=== PATIENT | female | born 1945 | race Caucasian/White ===

== ENCOUNTER 2020-10-09 10:38 | Outpatient (REF) | payer MEDICARE, SELFPAY ==
[2020-10-09 14:30] LABS: Anion Gap 13 (12-20); Blood Urea Nitrogen 19 mg/dL (9-16); Calcium 9.6 mg/dL (8.4-10.2); Carbon Dioxide 28 mmol/L (22-29); Chloride 102 mmol/L (96-108); Estimated Glomerular Filt Rate > 60; Glucose Random 84 mg/dL (60-115); Potassium 5.2 mmol/L (3.3-5.1); Sodium 138 mmol/L (135-145)
== END 2020-10-09 10:39 | disposition home or self-care (01) ==
LOC: HO.10HDL 10:38
PROVIDERS: Visit Provider Internal Medicine
DX: I10 Essential (primary) hypertension (principal); J31.0 Chronic rhinitis
CPT/HCPCS: 36415; 80048

== ENCOUNTER 2021-05-22 10:07 | Outpatient (REF) | payer MEDICARE, SELFPAY ==
[2021-05-22 13:54] LABS: MANUAL DIFF FLAG NO
[2021-05-22 14:05] LABS: Basophils Absolute Auto 0.1 X10*3/uL (0.0-0.2); Basophils Percent Auto 0.6 % (0-2); Eosinophils Absolute Auto 0.3 X10*3/uL (0.0-0.4); Eosinophils Percent Auto 3.8 % (0-4); Hematocrit 34.9 % (37-47); Hemoglobin 11.2 g/dl (12.0-16.0); Imm Gran Abs Auto 0.03 X10*3/uL (0.00-0.03); Imm Gran Pct Auto 0.3 % (0.0-0.4); Lymphocytes Absolute Auto 1.4 X10*3/uL (1.2-4.9); Lymphocytes Percent Auto 15.6 % (20-40); Mean Corpuscular HGB Conc 32.1 g/dl (31.0-35.0); Mean Corpuscular Volume 96.7 fL (80-98); Mean Platelet Volume 9.8 fL (9.4-12.3); Monocytes Absolute Auto 0.7 X10*3/uL (0.1-1.2); Monocytes Percent Auto 8.3 % (2-11); Neutrophils Absolute Auto 6.2 X10*3/uL (2.0-8.3); Neutrophils Percent Auto 71.4 % (45-73); Platelet Count 320 X10*3/uL (160-400); Red Blood Count 3.61 X10*6/uL (4.20-5.50); Red Cell Distribution Width 12.5 % (11.0-16.0); White Blood Count 8.7 X10*3/uL (4.8-10.8)
[2021-05-22 14:39] LABS: Alanine Aminotransferase 13 U/L (0-31); Albumin Level 4.2 g/dL (3.5-5.0); Alkaline Phosphatase 60 U/L (39-117); Anion Gap 14 (12-20); Aspartate Amino Transferase 19 U/L (5-31); Bilirubin Total 0.4 mg/dL (0.0-1.0); Blood Urea Nitrogen 24 mg/dL (9-16); Calcium 9.1 mg/dL (8.4-10.2); Carbon Dioxide 27 mmol/L (22-29); Chloride 105 mmol/L (96-108); Cholesterol 231 mg/dL; Estimated Glomerular Filt Rate 49; Glucose Fasting 85 mg/dL (60-99); HDL Cholesterol 87 mg/dL; LDL Cholesterol Calculated 130 mg/dl; Potassium 5.2 mmol/L (3.3-5.1); Sodium 141 mmol/L (135-145); Total Protein 7.3 g/dL (6.5-8.0); Triglycerides 71 mg/dL
[2021-05-22 15:01] LABS: Vitamin D 25-OH Total 36.3 ng/mL (>30)
== END 2021-05-22 10:08 | disposition home or self-care (01) ==
LOC: HO.10HDL 10:07
PROVIDERS: Visit Provider Internal Medicine
DX: I10 Essential (primary) hypertension (principal); E78.00 Pure hypercholesterolemia, unspecified; E55.9 Vitamin D deficiency, unspecified
CPT/HCPCS: 36415; 80053; 80061; 82306; 85025

== ENCOUNTER 2021-08-14 10:47 | Outpatient (REF) | payer MEDICARE, SELFPAY ==
[2021-08-14 14:33] LABS: Anion Gap 14 (12-20); Blood Urea Nitrogen 24 mg/dL (9-16); Carbon Dioxide 27 mmol/L (22-29); Chloride 102 mmol/L (96-108); Estimated Glomerular Filt Rate 52; Glucose Random 94 mg/dL (60-115); Potassium 5.3 mmol/L (3.3-5.1); Sodium 138 mmol/L (135-145)
== END 2021-08-14 10:48 | disposition home or self-care (01) ==
LOC: HO.10HDL 10:47
PROVIDERS: Visit Provider Internal Medicine
DX: I10 Essential (primary) hypertension (principal)
CPT/HCPCS: 36415; 80048

== ENCOUNTER 2021-11-06 12:19 | Outpatient (REF) | payer MEDICARE, SELFPAY ==
--- NOTE | ~2021-11-06 | US_ITS ---
EXAMINATION: US RETROPERITONEAL COMPLETE (RENAL) CLINICAL INFORMATION: Hypertension. Chronic renal insufficiency. Family history of renal carcinoma. COMPARISON: None TECHNIQUE: Real-time imaging of the kidneys and bladder. FINDINGS: RIGHT KIDNEY: 9.6 x 5.3 x 5.6 cm (SAG x AP x TRV). The kidney is normal in size, contour, and echogenicity. Renal cortical thickness is normal. No renal calculi or hydronephrosis. There is a simple appearing cyst in the lateral mid polar region measuring up to 2.5 cm. Mild prominence to the renal pyramids. LEFT KIDNEY: 11.2 x 4.5 x 3.8 cm (SAG x AP x TRV). The kidney is normal in size, contour, and echogenicity. Renal cortical thickness is normal. No calculi or focal parenchymal lesions. No hydronephrosis. 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 There are mildly prominent pyramids. BLADDER: Well distended and normal. Bilateral ureteral jets are demonstrated. Prevoid bladder volume is 200.0 mL. Postvoid bladder volume is 4.6 mL. US/US retroperitoneal comp IMPRESSION: Simple appearing cyst in the mid polar region of the right kidney measuring up to 2.5 cm, for which no further follow-up is necessary. Mild prominence to the renal pyramids bilaterally without hydronephrosis. 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
== END 2021-11-06 12:20 | disposition home or self-care (01) ==
LOC: HO.US 12:19
PROVIDERS: PCP Internal Medicine; Visit Provider Internal Medicine
DX: I12.9 Hypertensive chronic kidney disease with stage 1 through stage 4 chronic kidney disease, or unspecified chronic kidney disease (principal); N18.9 Chronic kidney disease, unspecified; Z80.51 Family history of malignant neoplasm of kidney
CPT/HCPCS: 76770

== ENCOUNTER 2022-01-27 10:55 | Outpatient (REF) | payer MEDICARE, SELFPAY ==
[2022-01-27 13:49] LABS: MANUAL DIFF FLAG NO
[2022-01-27 14:23] LABS: Basophils Absolute Auto 0.1 X10*3/uL (0.0-0.2); Basophils Percent Auto 0.7 % (0-2); Eosinophils Absolute Auto 0.2 X10*3/uL (0.0-0.4); Eosinophils Percent Auto 3.1 % (0-4); Hemoglobin 10.9 g/dl (12.0-16.0); Imm Gran Abs Auto 0.03 X10*3/uL (0.00-0.03); Imm Gran Pct Auto 0.4 % (0.0-0.4); Lymphocytes Absolute Auto 1.1 X10*3/uL (1.2-4.9); Lymphocytes Percent Auto 14.7 % (20-40); Mean Corpuscular HGB Conc 32.1 g/dl (31.0-35.0); Mean Corpuscular Hemoglobin 31.1 pg (27.0-33.0); Mean Corpuscular Volume 96.9 fL (80.0-98.0); Mean Platelet Volume 9.8 fL (9.4-12.3); Monocytes Absolute Auto 0.8 X10*3/uL (0.1-1.2); Monocytes Percent Auto 10.4 % (2-11); Neutrophils Absolute Auto 5.3 x10*3/uL (2.0-8.3); Neutrophils Percent Auto 70.7 % (45-73); Platelet Count 315 X10*3/uL (160-400); Red Blood Count 3.51 X10*6/uL (4.20-5.50); Red Cell Distribution Width 12.8 % (11.0-16.0); White Blood Count 7.5 X10*3/uL (4.8-10.8)
[2022-01-27 14:41] LABS: Anion Gap 14 (12-20); Blood Urea Nitrogen 24 mg/dL (9-16); Calcium 9.3 mg/dL (8.4-10.2); Carbon Dioxide 24 mmol/L (22-29); Chloride 105 mmol/L (96-108); Estimated Glomerular Filt Rate 47; Glucose Random 91 mg/dL (60-115); Potassium 5.6 mmol/L (3.3-5.1); Sodium 137 mmol/L (135-145)
== END 2022-01-27 10:56 | disposition home or self-care (01) ==
LOC: HO.10HDL 10:55
PROVIDERS: Visit Provider Internal Medicine
DX: E78.00 Pure hypercholesterolemia, unspecified (principal); I12.9 Hypertensive chronic kidney disease with stage 1 through stage 4 chronic kidney disease, or unspecified chronic kidney disease; N18.9 Chronic kidney disease, unspecified
CPT/HCPCS: 36415; 80048; 85025

== ENCOUNTER 2022-02-26 10:35 | Outpatient (REF) | payer MEDICARE, SELFPAY ==
[2022-02-26 12:11] LABS: Anion Gap 17 (12-20); Blood Urea Nitrogen 22 mg/dL (9-16); Calcium 9.6 mg/dL (8.4-10.2); Carbon Dioxide 23 mmol/L (22-29); Chloride 104 mmol/L (96-108); Estimated Glomerular Filt Rate 54; Glucose Random 89 mg/dL (60-115); Potassium 5.8 mmol/L (3.3-5.1); Sodium 138 mmol/L (135-145)
== END 2022-02-26 10:36 | disposition home or self-care (01) ==
LOC: HO.LAB 10:35
PROVIDERS: PCP Internal Medicine; Visit Provider Internal Medicine
DX: I12.9 Hypertensive chronic kidney disease with stage 1 through stage 4 chronic kidney disease, or unspecified chronic kidney disease (principal); N18.9 Chronic kidney disease, unspecified
CPT/HCPCS: 36415; 80048

== ENCOUNTER 2022-03-18 10:27 | Outpatient (REF) | payer MEDICARE, SELFPAY ==
[2022-03-18 15:08] LABS: Anion Gap 17 (12-20); Carbon Dioxide 23 mmol/L (22-29); Chloride 104 mmol/L (96-108); Potassium 6.2 mmol/L (3.3-5.1); Sodium 138 mmol/L (135-145)
== END 2022-03-18 10:28 | disposition home or self-care (01) ==
LOC: HO.10HDL 10:27
PROVIDERS: Visit Provider Internal Medicine
DX: E87.5 Hyperkalemia (principal)
CPT/HCPCS: 36415; 80051

== ENCOUNTER 2022-03-19 11:03 | Outpatient (REF) | payer MEDICARE, SELFPAY ==
[2022-03-19 12:29] LABS: Anion Gap 16 (12-20); Carbon Dioxide 22 mmol/L (22-29); Chloride 105 mmol/L (96-108); Potassium 5.4 mmol/L (3.3-5.1); Sodium 138 mmol/L (135-145)
== END 2022-03-19 11:04 | disposition home or self-care (01) ==
LOC: HO.LAB 11:03
PROVIDERS: PCP Internal Medicine; Visit Provider Internal Medicine
DX: I10 Essential (primary) hypertension (principal); E87.5 Hyperkalemia
CPT/HCPCS: 36415; 80051

== ENCOUNTER 2022-03-26 11:31 | Outpatient (REF) | payer MEDICARE, SELFPAY ==
[2022-03-26 14:49] LABS: Anion Gap 16 (12-20); Carbon Dioxide 22 mmol/L (22-29); Chloride 104 mmol/L (96-108); Potassium 6.4 mmol/L (3.3-5.1); Sodium 136 mmol/L (135-145)
== END 2022-03-26 11:32 | disposition home or self-care (01) ==
LOC: HO.10HDL 11:31
PROVIDERS: Visit Provider Internal Medicine
DX: E87.5 Hyperkalemia (principal)
CPT/HCPCS: 36415; 80051

== ENCOUNTER 2022-03-31 10:37 | Outpatient (REF) | payer MEDICARE, SELFPAY ==
[2022-03-31 13:49] LABS: Anion Gap 16 (12-20); Blood Urea Nitrogen 22 mg/dL (9-16); Calcium 9.8 mg/dL (8.4-10.2); Carbon Dioxide 24 mmol/L (22-29); Chloride 102 mmol/L (96-108); Estimated Glomerular Filt Rate 54; Glucose Random 93 mg/dL (60-115); Potassium 5.3 mmol/L (3.3-5.1); Sodium 137 mmol/L (135-145)
== END 2022-03-31 10:38 | disposition home or self-care (01) ==
LOC: HO.10HDL 10:37
PROVIDERS: Visit Provider Internal Medicine
DX: I10 Essential (primary) hypertension (principal); E87.5 Hyperkalemia
CPT/HCPCS: 36415; 80048

== ENCOUNTER 2022-04-17 11:00 | Outpatient (REF) | payer MEDICARE, SELFPAY ==
[2022-04-17 13:53] LABS: Anion Gap 19 (12-20); Blood Urea Nitrogen 18 mg/dL (9-16); Calcium 9.6 mg/dL (8.4-10.2); Carbon Dioxide 25 mmol/L (22-29); Chloride 100 mmol/L (96-108); Estimated Glomerular Filt Rate 52; Glucose Random 91 mg/dL (60-115); Potassium 4.6 mmol/L (3.3-5.1); Sodium 139 mmol/L (135-145)
== END 2022-04-17 11:01 | disposition home or self-care (01) ==
LOC: HO.10HDL 11:00
PROVIDERS: Visit Provider Internal Medicine
DX: I10 Essential (primary) hypertension (principal)
CPT/HCPCS: 36415; 80048

== ENCOUNTER 2022-11-11 08:01 | Outpatient (REF) | payer MEDICARE, SELFPAY ==
[2022-11-11 10:38] LABS: MANUAL DIFF FLAG NO
[2022-11-11 10:41] LABS: Basophils Absolute Auto 0.1 X10*3/uL (0.0-0.2); Basophils Percent Auto 0.6 % (0-2); Eosinophils Absolute Auto 0.3 X10*3/uL (0.0-0.4); Eosinophils Percent Auto 3.4 % (0-4); Hematocrit 38.9 % (37.0-47.0); Hemoglobin 12.7 g/dl (12.0-16.0); Imm Gran Abs Auto 0.02 X10*3/uL (0.00-0.03); Imm Gran Pct Auto 0.2 % (0.0-0.4); Lymphocytes Absolute Auto 1.3 X10*3/uL (1.2-4.9); Lymphocytes Percent Auto 15.4 % (20-40); Mean Corpuscular HGB Conc 32.6 g/dl (31.0-35.0); Mean Corpuscular Hemoglobin 30.9 pg (27.0-33.0); Mean Corpuscular Volume 94.6 fL (80.0-98.0); Mean Platelet Volume 9.9 fL (9.4-12.3); Monocytes Absolute Auto 0.8 X10*3/uL (0.1-1.2); Monocytes Percent Auto 8.9 % (2-11); Neutrophils Percent Auto 71.5 % (45-73); Platelet Count 320 X10*3/uL (160-400); Red Blood Count 4.11 X10*6/uL (4.20-5.50); Red Cell Distribution Width 12.4 % (11.0-16.0); White Blood Count 8.4 X10*3/uL (4.8-10.8)
[2022-11-11 11:16] LABS: Vitamin D 25-OH Total 37.9 ng/mL (>30)
[2022-11-11 11:20] LABS: Alanine Aminotransferase 19 U/L (0-31); Albumin Level 4.4 g/dL (3.5-5.0); Alkaline Phosphatase 61 U/L (39-117); Anion Gap 15 (12-20); Aspartate Amino Transferase 21 U/L (5-31); Bilirubin Total 0.6 mg/dL (0.0-1.0); Blood Urea Nitrogen 21 mg/dL (9-16); Calcium 9.9 mg/dL (8.4-10.2); Carbon Dioxide 27 mmol/L (22-29); Chloride 105 mmol/L (96-108); Cholesterol 262 mg/dL; Estimated Glomerular Filt Rate 51; Glucose Fasting 97 mg/dL (60-99); HDL Cholesterol 93 mg/dL; LDL Cholesterol Calculated 157 mg/dl; Potassium 4.4 mmol/L (3.3-5.1); Sodium 143 mmol/L (135-145); Total Protein 7.4 g/dL (6.5-8.0); Triglycerides 62 mg/dL
== END 2022-11-11 08:02 | disposition home or self-care (01) ==
LOC: HO.10HDL 08:01
PROVIDERS: Visit Provider Internal Medicine
DX: E78.00 Pure hypercholesterolemia, unspecified (principal); E55.9 Vitamin D deficiency, unspecified; N18.9 Chronic kidney disease, unspecified; D63.1 Anemia in chronic kidney disease
CPT/HCPCS: 36415; 80053; 80061; 82306; 85025

== ENCOUNTER 2023-06-09 08:49 | Outpatient (REF) | payer MEDICARE, SELFPAY ==
[2023-06-09 10:29] LABS: MANUAL DIFF FLAG NO
[2023-06-09 10:38] LABS: Basophils Absolute Auto 0.1 X10*3/uL (0.0-0.2); Basophils Percent Auto 0.7 % (0-2); Eosinophils Absolute Auto 0.3 X10*3/uL (0.0-0.4); Eosinophils Percent Auto 3.6 % (0-4); Hematocrit 38.1 % (37.0-47.0); Hemoglobin 12.4 g/dl (12.0-16.0); Imm Gran Abs Auto 0.02 X10*3/uL (0.00-0.03); Imm Gran Pct Auto 0.2 % (0.0-0.4); Lymphocytes Absolute Auto 1.4 X10*3/uL (1.2-4.9); Lymphocytes Percent Auto 16.6 % (20-40); Mean Corpuscular HGB Conc 32.5 g/dl (31.0-35.0); Mean Corpuscular Volume 95.3 fL (80.0-98.0); Mean Platelet Volume 9.2 fL (9.4-12.3); Monocytes Absolute Auto 0.7 X10*3/uL (0.1-1.2); Monocytes Percent Auto 8.1 % (2-11); Neutrophils Absolute Auto 6.1 x10*3/uL (2.0-8.3); Neutrophils Percent Auto 70.8 % (45-73); Platelet Count 308 X10*3/uL (160-400); Red Cell Distribution Width 12.6 % (11.0-16.0); White Blood Count 8.7 X10*3/uL (4.8-10.8)
[2023-06-09 10:52] LABS: Alanine Aminotransferase 13 U/L (0-31); Albumin Level 4.3 g/dL (3.5-5.0); Alkaline Phosphatase 67 U/L (39-117); Anion Gap 12 (12-20); Aspartate Amino Transferase 18 U/L (5-31); Bilirubin Total 0.5 mg/dL (0.0-1.0); Blood Urea Nitrogen 16 mg/dL (9-16); Calcium 10.1 mg/dL (8.4-10.2); Carbon Dioxide 30 mmol/L (22-29); Chloride 104 mmol/L (96-108); Cholesterol 234 mg/dL (<200); Estimated Glomerular Filt Rate > 60; Glucose Fasting 104 mg/dL (60-99); HDL Cholesterol 85 mg/dL (>40); LDL Cholesterol Calculated 129 mg/dL (<100); Potassium 4.4 mmol/L (3.3-5.1); Sodium 142 mmol/L (135-145); Total Protein 8.1 g/dL (6.5-8.0); Triglycerides 100 mg/dL (<150)
== END 2023-06-09 08:50 | disposition home or self-care (01) ==
LOC: HO.10HDL 08:49
PROVIDERS: Visit Provider Internal Medicine
DX: I12.9 Hypertensive chronic kidney disease with stage 1 through stage 4 chronic kidney disease, or unspecified chronic kidney disease (principal); N18.9 Chronic kidney disease, unspecified; E78.00 Pure hypercholesterolemia, unspecified
CPT/HCPCS: 36415; 80053; 80061; 85025

== ENCOUNTER 2023-07-08 09:57 | Outpatient (REF) | payer MEDICARE, SELFPAY ==
--- NOTE | ~2023-07-08 | CT_ITS ---
CT HEAD WITHOUT CONTRAST CLINICAL INFORMATION: Follow-up of the bed. Hit head. COMPARISON: None available. TECHNIQUE: Contiguous axial imaging was performed from the skull base to vertex without intravenous administration of contrast. This CT examination was performed using dose optimization techniques as appropriate, variously including the following: *Automated exposure control *Adjustment of mA and/or kV according to patient size (this includes techniques or standardized protocols for targeted exams where dose is matched to indication/reason for exam; i.e. extremities or head) *Use of iterative reconstruction technique FINDINGS: There is no intracranial hemorrhage, hydrocephalus, extra-axial surface collection, midline shift, or other herniation pattern. Kim to white matter differentiation is diffusely maintained without evidence of an evolved acute territorial infarct. The basilar cisterns are preserved. No significant soft tissue abnormality. No acute osseous abnormality. There is mild mucosal thickening within the maxillary sinuses bilaterally and the left ethmoid air cells. The mastoid air cells and the middle ear cavities are clear. Partially imaged advanced hypertrophic degenerative changes involving the atlantodental interval. 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 CT/CT head/brain wo IV con IMPRESSION: - No acute intracranial abnormality. - Partially imaged advanced hypertrophic degenerative changes involving the atlantodental interval.
== END 2023-07-08 09:58 | disposition home or self-care (01) ==
LOC: HO.CT 09:57
PROVIDERS: PCP Internal Medicine; Visit Provider Internal Medicine
DX: S09.90XA Unspecified injury of head, initial encounter (principal); Z91.81 History of falling
CPT/HCPCS: 70450

== ENCOUNTER 2023-11-09 02:41 | Emergency (ER) | payer MEDICARE, SELFPAY ==
[2023-11-09 02:48] VITALS: BP 166/72; PULSE 80; RESP 16; TEMP 36.8; O2SAT 98; BMI 28.3
[2023-11-09 03:14] LABS: MANUAL DIFF FLAG NO
[2023-11-09 03:15] LABS: Basophils Percent Auto 0.4 % (0-2); Eosinophils Absolute Auto 0.2 X10*3/uL (0.0-0.4); Eosinophils Percent Auto 1.4 % (0-4); Hematocrit 36.7 % (37.0-47.0); Hemoglobin 12.4 g/dl (12.0-16.0); Imm Gran Abs Auto 0.03 X10*3/uL (0.00-0.03); Imm Gran Pct Auto 0.3 % (0.0-0.4); Lymphocytes Absolute Auto 1.1 X10*3/uL (1.2-4.9); Lymphocytes Percent Auto 10.4 % (20-40); Mean Corpuscular HGB Conc 33.8 g/dl (31.0-35.0); Mean Corpuscular Hemoglobin 31.3 pg (27.0-33.0); Mean Corpuscular Volume 92.7 fL (80.0-98.0); Mean Platelet Volume 9.1 fL (9.4-12.3); Monocytes Absolute Auto 0.9 X10*3/uL (0.1-1.2); Monocytes Percent Auto 7.9 % (2-11); Neutrophils Absolute Auto 8.8 x10*3/uL (2.0-8.3); Neutrophils Percent Auto 79.6 % (45-73); Platelet Count 278 X10*3/uL (160-400); Red Blood Count 3.96 X10*6/uL (4.20-5.50); Red Cell Distribution Width 12.8 % (11.0-16.0)
[2023-11-09 03:29] LABS: Alanine Aminotransferase 12 U/L (0-31); Albumin Level 4.1 g/dL (3.5-5.0); Alkaline Phosphatase 61 U/L (39-117); Anion Gap 16 (12-20); Aspartate Amino Transferase 20 U/L (5-31); Bilirubin Total 0.5 mg/dL (0.0-1.0); Blood Urea Nitrogen 13 mg/dL (9-16); Calcium 9.8 mg/dL (8.4-10.2); Carbon Dioxide 24 mmol/L (22-29); Chloride 103 mmol/L (96-108); Creatinine Clr Calc Pharmacy 49.9; Estimated Glomerular Filt Rate > 60; Glucose Random 111 mg/dL (60-115); Lipase 20 U/L (8-78); Potassium 3.9 mmol/L (3.3-5.1); Sodium 139 mmol/L (135-145)
[2023-11-09 03:41] LABS: COVID-19 Test Negative (Negative); IDNOW Serial# 08D9AD1C; IDNOW Serial# 152EDE1D; Influenza A Negative (Negative); Influenza B2 Negative (Negative)
[2023-11-09 04:23] VITALS: BP 181/77; PULSE 69; RESP 18; TEMP 36.5; O2SAT 98
[2023-11-09 06:26] VITALS: BP 191/72; PULSE 75; RESP 16; TEMP 36.6; O2SAT 97
--- NOTE | 2023-11-09 06:48 | ED_ITS ---
HPI - Nausea/Vomiting/Diarrhea General Chief complaint: Nausea/Vomiting/Diarrhea Stated complaint: Diarrhea Time Seen by Provider: 11/09/23 06:28 Source: patient Mode of arrival: ambulatory Limitations: no limitations History of Present Illness HPI Narrative: 78 y/o female with history of HLD presents today for evaluation of nausea and diarrhea for 3 days after eating a take out precision grinder on wednesday. She reports that her had similar symptoms but more mild. On wednesday, she woke up with diffuse lower abdominal pain and cramping. She developing watery diarrhea shortly later than day. Yesterday she was having multiple bouts of watery diarrhea with crampy pain. No blood in stool. She states that the diarrhea is uncontrollable and has been happening when she is standing or in bed. Last meal she had was on Wednesday. She reports PO water intake prior to arrival this morning. Denies fevers, vomiting. Reports all over weakness and fatigue. No syncopal episodes. MD elicited complaint: nausea, diarrhea and abdominal pain Onset (ago): day(s) Description of diarrhea: watery Associated nausea: Yes Associated abdominal pain: Yes Location of pain: diffuse, RLQ and LLQ Radiation: diffuse Pain consistency: colicky Severity: moderate Pain scale (0-10): 5 Quality: cramping and aching Context: possible food poisoning and sick contacts ( with similar symptoms) Associated symptoms: fatigue Related Data Allergies Allergy/AdvReac Type Severity Reaction Status Date / Time adhesive tape [Adhesive Tape] Allergy Intermediate BLISTERS Verified 11/09/23 02:48 Sulfa (Sulfonamide Allergy Intermediate RASH Verified 11/09/23 02:48 Antibiotics) Review of Systems 2 Review of Systems: Yes all other systems are reviewed and are negative Gastrointestinal: Gastrointestinal: Reports nausea PMFSH Social History Social History Advance Directives: No Advance Directives Information Provided: Yes Physical Exam 2 Vital Signs: Vital Signs: Last Vital Signs Temp 97.9 F 11/09/23 07:56 Pulse 68 11/09/23 07:56 Resp 18 11/09/23 07:56 BP 160/75 H 11/09/23 07:56 Pulse Ox 96 11/09/23 07:56 O2 Del Method Room Air 11/09/23 07:56 BMI result Body Mass Index 28.3 Appearance: Alert. Oriented X3. Visibly uncomfortable and turning in stretcher Head: normocephalic, atraumatic. Eyes: Pupils equal, round. Pale conjunctiva. ENT: Pharynx normal. No tonsillar swelling or exudate. Neck: Normal inspection. Neck supple. CVS: Normal heart rate and rhythm. Pulses normal. Respiratory: No respiratory distress. Breath sounds normal. Abdomen: Soft and nontender. +BS x4, hyperactive Skin: Skin warm and dry. Normal skin color. Normal skin turgor. No rashes. Extremities: No lower extremity edema. No joint swelling. Neuro/psych: Nonfocal Medications Administered Discontinued Medications Generic Name Dose Route Start Last Admin Trade Name Freq PRN Reason Stop Dose Admin Lactated Ringer's 1,000 mls @ 999 mls/hr 11/09/23 07:00 11/09/23 08:04 Lr IV 11/09/23 08:00 999 mls/hr .Q1H1M ANISHA Administration Ondansetron HCl 4 mg 11/09/23 06:46 11/09/23 08:04 Ondansetron Hcl 4 Mg/2 Ml Vial IVPUSH 11/09/23 06:47 4 mg ONCE ONE Administration Procedures EJ/Peripheral Line Arm L: Time Out Performed: No Skin Cleansed in Sterile Fashion: Yes Size (gauge): 20 IV Secured and Dressing Applied: Yes Patient Tolerated Procedure: well and no complications Medical Decision Making Medical Decision Making MDM Narrative: 78 y/o female with history of HLD presents today for evaluation of nausea and diarrhea for 3 days after eating a take out precision grinder on Wednesday. She has been having uncontrollable bouts of watery diarrhea and diffuse crampy lower abdominal pain. She states that her has been experiencing similar but more mild symptoms. On exam, she is tired and weak appearing. She reports last PO intake of food to be Wednesday and water just prior to arrival this morning. She is nausea and reports diffuse lower abdominal pain. Will administer zofran and IVF to replete volume status and treat dehydration. Viral respiratory panel is negative. Ordered GI panel and c. difficile PCR to evaluate for infectious etiology, as high clinical suspicion for gastroenteritis. 08:53- On reevaluation, patient has 1/3 of LR and says that she is feeling much improved, reports like night and day . Discussed that she most likely shared a GI bug with her and she was dehydrated as a result. Encouraged PO trial before discharge. Comfortable to discharge home with bland diet, increased fluids and rest. Patient in agreement with plan. Differential Diagnosis Differential Diagnoses: The differential diagnosis associated with the presentation includes viral gastroenteritis, c diff, food poisoning, viral URI, covid, flu, cholecystitis, pancreatitis Admission/Observation Consideration of admission/observation: Escalation of care including admission/observation considered Lab Data MDM Lab Attestation statement: I reviewed the patient's lab results. Reviewed the labs, labs are unremarkable and reassuring 11/09/23 03:09 11/09/23 03:09 Labs: Lab Results 11/09/23 Range/Units 03:09 WBC 11.0 H (4.8-10.8) X10*3/uL RBC 3.96 L (4.20-5.50) X10*6/uL Hgb 12.4 (12.0-16.0) g/dl Hct 36.7 L (37.0-47.0) % MCV 92.7 (80.0-98.0) fL MCH 31.3 (27.0-33.0) pg MCHC 33.8 (31.0-35.0) g/dl RDW 12.8 (11.0-16.0) % Plt Count 278 (160-400) X10*3/uL MPV 9.1 L (9.4-12.3) fL Immature Gran % (Auto) 0.3 (0.0-0.4) % Neut % (Auto) 79.6 H (45-73) % Lymph % (Auto) 10.4 L (20-40) % [place] % (Auto) 7.9 (2-11) % Eos % (Auto) 1.4 (0-4) % Baso % (Auto) 0.4 (0-2) % Lymph # (Auto) 1.1 L (1.2-4.9) X10*3/uL [place] # (Auto) 0.9 (0.1-1.2) X10*3/uL Eos # (Auto) 0.2 (0.0-0.4) X10*3/uL Baso # (Auto) 0.0 (0.0-0.2) X10*3/uL Abs Immat Gran (auto) 0.03 (0.00-0.03) X10*3/uL Absolute Neuts (auto) 8.8 H (2.0-8.3) x10*3/uL Absolute Nucleated RBC 0.000 (0.0-0.012) X10*3/uL Nucleated RBC % (auto) 0.0 (0.0-0.2) /100WBC Sodium 139 (135-145) mmol/L Potassium 3.9 (3.3-5.1) mmol/L Chloride 103 (96-108) mmol/L Carbon Dioxide 24 (22-29) mmol/L Anion Gap 16 (12-20) BUN 13 (9-16) mg/dL Creatinine 0.88 (0.5-1.4) mg/dL Estim Creat Clear Calc 49.9 Estimated GFR > 60 Random Glucose 111 (60-115) mg/dL Calcium 9.8 (8.4-10.2) mg/dL Total Bilirubin 0.5 (0.0-1.0) mg/dL AST 20 (5-31) U/L ALT 12 (0-31) U/L Alkaline Phosphatase 61 (39-117) U/L Total Protein 8.0 (6.5-8.0) g/dL Albumin 4.1 (3.5-5.0) g/dL Lipase 20 (8-78) U/L COVID-19 (EBONY) Negative (Negative) COVID-19 Clin Com See Note Influenza Type A (BRANDON) Negative (Negative) Influenza Type B (BRANDON) Negative (Negative) Influenza A & B Note See Note Independent Historian Clinical information obtained from an independent historian. History obtained from or confirmed by: Spouse Tests considered The following testing was considered but not selected: considered CT scan abd/pelvis Prescription Management I considered prescription management with: Antibiotic Discharge Plan Discharge Clinical Impression: Gastroenteritis Patient Disposition: Home, Self-Care Instructions: Gastroenteritis (DC) Additional Instructions: You lab workup today was unremarkable. You most likely have a viral GI bug also known as gastroenteritis. Treatment is supportive care, symptoms usually resolve on their own in 48-72 hours. Recommend rest and plenty of oral hydration. Stick to a bland diet like soup and toast while you are not feeling well. Recommend over the counter Pepto Bismol or Imodium for upset stomach and diarrhea. Follow up with your doctor as needed. If you develop new or worsening symptoms call 911 or come back to the ER for further evaluation. Referrals: Juno Bustamante MD [Primary Care Provider] - Print Language: Croatian
[2023-11-09 07:56] VITALS: BP 160/75; PULSE 68; RESP 18; TEMP 36.6; O2SAT 96
[2023-11-09] MEDS: ondansetron HCL 4 MG/2 ML VIAL IVPUSH (08:04)
[2023-11-09] MEDS: Lactated Ringers 1,000 ML 999 ML IV (08:04)
[2023-11-09 09:46] VITALS: BP 174/71; PULSE 77; RESP 20; TEMP 36.7; O2SAT 96
--- NOTE | 2023-11-09 09:47 | PC.NURSE ---
NO NEED FOR GI PANEL ON THE WORKLIST DISCHARGED WITH GASTROENTERITIS
== END 2023-11-09 09:49 | disposition home or self-care (01) ==
PROVIDERS: Emergency Provider Emergency Medicine; PCP Internal Medicine
DX: K52.9 Noninfective gastroenteritis and colitis, unspecified (principal); Z11.52 Encounter for screening for COVID-19
CPT/HCPCS: 36410; 80053; 83690; 85025; 87502; 87635; 96374; 99284; J2405; J7120

== ENCOUNTER 2024-02-08 09:28 | Outpatient (REF) | payer MEDICARE, SELFPAY ==
[2024-02-08 10:53] LABS: Anion Gap 17 (12-20); Blood Urea Nitrogen 16 mg/dL (9-16); Calcium 10.2 mg/dL (8.4-10.2); Carbon Dioxide 25 mmol/L (22-29); Chloride 104 mmol/L (96-108); Cholesterol 235 mg/dL (<200); Estimated Glomerular Filt Rate > 60; Glucose Fasting 104 mg/dL (60-99); HDL Cholesterol 83 mg/dL (>40); LDL Cholesterol Calculated 132 mg/dL (<100); Potassium 4.8 mmol/L (3.3-5.1); Sodium 141 mmol/L (135-145); Triglycerides 102 mg/dL (<150)
== END 2024-02-08 09:29 | disposition home or self-care (01) ==
LOC: HO.10HDL 09:28
PROVIDERS: Visit Provider Internal Medicine
DX: E78.00 Pure hypercholesterolemia, unspecified (principal)
CPT/HCPCS: 36415; 80048; 80061

== ENCOUNTER 2024-10-31 09:01 | Outpatient (REF) | payer MEDICARE, SELFPAY ==
[2024-10-31 11:24] LABS: Alanine Aminotransferase 14 U/L (0-31); Aspartate Amino Transferase 24 U/L (5-31); Cholesterol 222 mg/dL (<200); HDL Cholesterol 79 mg/dL (>40); LDL Cholesterol Calculated 116 mg/dL (<100); Triglycerides 137 mg/dL (<150)
== END 2024-10-31 09:02 | disposition home or self-care (01) ==
LOC: HO.10HDL 09:01
PROVIDERS: Referring Provider Internal Medicine Cardiovascular Disease; Visit Provider Internal Medicine
DX: E78.00 Pure hypercholesterolemia, unspecified (principal)
CPT/HCPCS: 36415; 80061; 82550; 84450; 84460

== ENCOUNTER 2024-11-10 13:20 | Outpatient (AMB) | payer MEDICARE, SELFPAY ==
--- NOTE | 2024-11-10 13:25 | MHC.PC.OV ---
Vital Signs 11/10/24 13:33 Height 5 ft 1 in Weight 164 lb BMI 31.0 BP 140/80 H Blood Pressure Location Rt brachial Position Sitting Pulse 87 Pulse Source Pulse Oximeter Temp 97.6 F Temp Source Axillary Pulse Oximetry (%) 98 Oxygen Delivery Method Room Air Intake Visit Reasons: Routine - see comments Pipe Cleaner Required: No Allergies adhesive tape [Adhesive Tape] Allergy (Intermediate, Verified 11/10/24 13:30) BLISTERS Sulfa (Sulfonamide Antibiotics) Allergy (Intermediate, Verified 11/10/24 13:30) RASH Tobacco use date assessed: 11/10/24 Fall risk assessment: 2 + Falls in past year Last assessed Fall Risk: 11/10/24 Dental Screening Dental Screen Date: 11/10/24 Did you have a dental visit in the last 12 months?: Yes Did you have a dental problem in the last 6 months where you did not have access to dental care?: No HPI HPI Comments History of Present Illness Details The patient is a 79 year old female with a past medical history of hyperlipidemia, psoriasis, OA, rosacea presenting for follow up. Last seen by pcp in May CV: on lipitor 20 mg daily. Recent cholesterol at 222 with LDL of 116 and HDL 79. Denies side effects OA: On gabapentin Follows with dermatology-[facility]. Scalp psoriasis. Betamethasone worked to clear up. Mammo: Completed screening Colonoscopy: Declines further screening. ROS CONSTITUTIONAL: Denies weight loss, fever and chills. HEENT: Denies changes in vision and hearing. RESPIRATORY: Denies SOB and cough. CV: Denies palpitations and CP GI: Denies abdominal pain, nausea, vomiting and diarrhea. : Denies dysuria and urinary frequency. MSK: Denies new myalgia and joint pain. SKIN: Denies rash and pruritus. NEUROLOGICAL: Denies headache PSYCHIATRIC: Denies recent changes in mood. PHYSICAL EXAM: GENERAL: Alert and oriented x 3. NAD EYES: EOMI. Anicteric. HENT: Moist mucous membranes. No scleral icterus. No cervical lymphadenopathy. LUNGS: Clear to auscultation bilaterally. CARDIOVASCULAR: Regular rate and rhythm. No murmur. No JVD. ABDOMEN: Soft, non-tender +bs EXTREMITIES: No edema. Non-tender. SKIN: No rashes or lesions. Warm. NEUROLOGIC: No focal neurological deficits. CN II-XII grossly intact PSYCHIATRIC: Cooperative. Appropriate mood and affect [facility] Family History Mother No problems noted. Father No problems noted. Social History Housing: House Patient Tobacco Use Status: Never used Tobacco e-Cigarette/Vaping Use: Never Used service: No Current occupational status: retired Cognitive needs: No Hearing needs: No Vision needs: Yes (reading glasses) Questionnaire PHQ-9 Over the last 2 weeks, how often have you been bothered by any of the following problems? 1. Little interest or pleasure in doing things: not at all 2. Feeling down, depressed, or hopeless: not at all 3. Trouble falling or staying asleep, or sleeping too much: not at all 4. Feeling tired or having little energy: not at all 5. Poor appetite or overeating: not at all 6. Feeling bad about yourself - or that you are a failure or have let yourself or your family down: not at all 7. Trouble concentrating on things, such as reading the newspaper or watching television: not at all Source: Developed by Drs. Isaiah Ignacio, Jazzy Crawley, Kenn Ray and colleagues, with an educational dejah from [employer]. Thrive Questionnaire Date Thrive assessed: 11/10/24 I am a: Patient Within the past 12 months, did the food you bought not last and you didn't have the money to get more?: Never true Within the past 12 months, did you worry whether your food would run out before you got money to buy more?: Never true Do you have trouble paying for medicines?: No Do you have trouble getting transportation to medical appointments?: No Do you have trouble paying your heating and electricity bill?: No Do you have trouble taking care of your child, family member or friend?: No Do you have trouble with day-to-day activities such as bathing, preparing meals, shopping, managing finances, etc.?: No Are you currently unemployed and looking for a job?: No Are you interested in more education?: No THRIVE Score: 0 AUDIT C Alcohol Use Questionnaire (AUDIT-C) 1. How often do you have a drink containing alcohol?: Monthly or less 2. How many drinks containing alcohol do you have on a typical day when you are drinking?: 1 or 2 3. How often do you have six or more drinks on one occasion?: Less than monthly Total Score: 2 KATALINA-7 AMB Questionnaire KATALINA-7 Date KATALINA - 7 assessed: 11/10/24 Feeling nervous, anxious, or on edge: 0 = Not at all Not being able to stop or control worryin = Not at all Worrying too much about different things: 0 = Not at all Trouble relaxin = Not at all Being so restless that it is hard to sit still: 0 = Not at all Becoming easily annoyed or irritable: 0 = Not at all Feeling afraid as if something awful might happen: 0 = Not at all Total KATALINA-7 score (0-4 normal; 5-9 mild; 10-14 moderate; 15-21 severe): 0 Source: Developed by Drs. Isaiah Ignacio, Jazzy Crawley, Kenn Ray and colleagues, with an educational dejah from [employer]. Coding Level of Care Code New Pt Level 4 (08776) Diagnoses Hyperlipidemia, unspecified hyperlipidemia type E78.5 Hyperlipidemia type: unspecified Assessment & Plan Assessment & Plan (1) Hyperlipidemia: Code(s): E78.5 - Hyperlipidemia, unspecified Category: Medical Qualifiers: Hyperlipidemia type: unspecified Qualified Code(s): E78.5 - Hyperlipidemia, unspecified Plan establish care past medical, surgical, social reviewed HLD-LDL at goal on lipitor Follow up for CPE Orders: Orders Complete Blood Count Auto Diff 6 Months E78.5 - Hyperlipidemia, unspecified, Z13.0 - Encounter for screening for diseases of the blood and blood-forming organs and certain disorders involving the immune mechanism, Z13.228 - Encounter for screening for other metabolic disorders Comprehensive Met. Panel 6 Months E78.5 - Hyperlipidemia, unspecified, Z13.0 - Encounter for screening for diseases of the blood and blood-forming organs and certain disorders involving the immune mechanism, Z13.228 - Encounter for screening for other metabolic disorders Lipid Panel 6 Months E78.5 - Hyperlipidemia, unspecified, Z13.0 - Encounter for screening for diseases of the blood and blood-forming organs and certain disorders involving the immune mechanism, Z13.228 - Encounter for screening for other metabolic disorders
[2024-11-10 13:33] VITALS: BP 140/80; PULSE 87; TEMP 36.4; O2SAT 98; BMI 31.0
== END 2024-11-10 13:57 | disposition home or self-care (01) ==
LOC: HO.HMCHD 13:21
PROVIDERS: PCP Internal Medicine; Visit Provider Internal Medicine
DX: E78.5 Hyperlipidemia, unspecified (principal)

== ENCOUNTER → 2024-11-10 13:20 | Outpatient (BNVA) | payer MEDICARE, SELFPAY | PROVIDERS: PCP Internal Medicine; Visit Provider Internal Medicine | DX: L40.9 Psoriasis, unspecified (principal); E78.5 Hyperlipidemia, unspecified; M19.90 Unspecified osteoarthritis, unspecified site | CPT/HCPCS: 96127; 99202 ==

== ENCOUNTER 2025-05-28 11:16 | Outpatient (REF) | payer MEDICARE, SELFPAY ==
[2025-05-28 11:36] LABS: MANUAL DIFF FLAG NO
[2025-05-28 11:56] LABS: Hematocrit 38.6 % (37.0-47.0); Hemoglobin 12.7 g/dl (12.0-16.0); Imm Gran Abs Auto 0.03 X10*3/uL (0.00-0.03); Imm Gran Pct Auto 0.3 % (0.0-0.4); Lymphocytes Absolute Auto 1.3 X10*3/uL (1.2-4.9); Mean Corpuscular HGB Conc 32.9 g/dl (31.0-35.0); Mean Corpuscular Hemoglobin 31.3 pg (27.0-33.0); Mean Corpuscular Volume 95.1 fL (80.0-98.0); NRBC Abs Auto 0.000 X10*3/uL (0.0-0.012); NRBC Pct Auto 0.0 /100WBC (0.0-0.2); Platelet Count 311 X10*3/uL (160-400); Red Blood Count 4.06 X10*6/uL (4.20-5.50); White Blood Count 8.6 X10*3/uL (4.8-10.8)
[2025-05-28 12:31] LABS: Alanine Aminotransferase 20 U/L (0-31); Albumin Level 4.7 g/dL (3.5-5.0); Alkaline Phosphatase 76 U/L (39-117); Anion Gap 12 (12-20); Aspartate Amino Transferase 26 U/L (5-31); Blood Urea Nitrogen 20 mg/dL (9-16); Calcium 10.1 mg/dL (8.4-10.2); Carbon Dioxide 29 mmol/L (22-29); Chloride 103 mmol/L (96-108); Cholesterol 251 mg/dL (<200); Estimated Glomerular Filt Rate > 60; HDL Cholesterol 95 mg/dL (>40); Potassium 4.9 mmol/L (3.3-5.1); Sodium 139 mmol/L (135-145); Total Protein 8.2 g/dL (6.5-8.0); Triglycerides 143 mg/dL (<150)
--- OUTSIDE RECORDS SUMMARY | 2025-05-28 14:20 | XMS_ITS | Patient Health Record ---
[facility] Address [address] [place] [address] Care Team Providers Care Pantry Attendant Name Role Phone Juno Bustamante MD Primary Care Provider Gema Bose Unavailable [phone] Allergies Allergen (clinical drug ingredient) Drug/Non Drug Allergy documented on EMR Reaction Allergy Type Onset Date Status sulfa rash Drug Allergy Active Reason For Referral No Information Medications Medication SIG (Take, Route, Frequency, Duration) Notes Start Date End Date Status Aleve PRN Active Probiotic Active vitamin Active Social History Tobacco use other than smoking: Question Answer Notes Are you an other tobacco user? No Problems No Known Problems Plan Of Treatment No Information Insurance Providers Payer Name Payer Address Payer Phone Subscriber Number Group Number Insured Name Patient Relationship to Insured Coverage Start Date Coverage End Date Medicare [employer] [address] [place] [phone] [id number] Amarilis Euceda Self - patient is the insured [facility] [address] [place] [address] [id number] Amarilis Euceda Self - patient is the insured Medical (General) History Medical History History ICD Code Arthritis Back,Hip,and Knee pain sinusitis Measles Mumps Chicken pox Psoriasis/eczema Surgical History Surgery Date(Month/Year) back surgery x3 hysterectomy
--- OUTSIDE RECORDS SUMMARY | 2025-05-28 14:20 | XMS_ITS | Patient Health Record ---
Author Organization [facility] Address [address] [place] [id number] Care Team Providers Care Finished Cloth Checker Name Role Phone Simon Isaiah Brinda [phone] Reason For Referral No Information Plan Of Treatment No Information
== END 2025-05-28 11:17 | disposition home or self-care (01) ==
LOC: HO.LAB 11:16
PROVIDERS: PCP Student in an Organized Health Care Education/Training Program; Visit Provider Internal Medicine
DX: Z13.0 Encounter for screening for diseases of the blood and blood-forming organs and certain disorders involving the immune mechanism (principal); Z13.228 Encounter for screening for other metabolic disorders; E78.5 Hyperlipidemia, unspecified
CPT/HCPCS: 36415; 80053; 80061; 85025

== ENCOUNTER 2025-06-08 10:10 | Outpatient (AMB) | payer MEDICARE, SELFPAY ==
--- NOTE | 2025-06-08 10:14 | A.OFFPC_ITS ---
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 Accompanied by: Self / Same As Patient Allergies adhesive tape (Adhesive Tape) Allergy (Intermediate, Verified 06/08/25 10:15) BLISTERS Sulfa (Sulfonamide Antibiotics) Allergy (Intermediate, Verified 06/08/25 10:15) RASH Medication List - Last Reconciled 06/08/25 by Anup Flowers MD atorvastatin 20 mg PO DAILY betamethasone dipropionate 0.05% topically APPLY TO SCALP TWICE A DAY FOR 1 WEEK, THEN APPLY 2-3 TIMES A WEEK PRN; Tobacco use date assessed: 11/10/24 Fall risk assessment: No Falls in past year Last assessed Fall Risk: 06/08/25 Dental Screening Dental Screen Date: 11/10/24 HPI HPI Comments History of Present Illness Details The patient is a 79-year-old female presenting for a general health maintenance visit. She reports feeling well and considers herself very healthy, remaining active and taking only one statin medication. She experiences aches and pains with significant physical activity, consistent with her history of arthritis, which is managed with occasional Aleve, approximately one to two times per month. Recent blood work from two weeks prior revealed a total cholesterol of 251 mg/dL and an LDL of 128 mg/dL, which is an increase from 116 mg/dL the previous year. Other labs, including blood counts, electrolytes, and kidney function, were normal. The patient reports she cooks most of her meals, avoids processed foods, and consumes small portions of meat. The patient has a history of psoriasis on her scalp, for which she uses betamethasone. She currently has a mild flare-up and notes it occurs in cycles, often around this time of year. A new complaint is discomfort in her calf, mainly occurring at night in bed. She also reports having multiple small, hard, non-painful subcutaneous bumps, identified as ganglion cysts. Regarding health screenings, the patient is postmenopausal. She declines mammograms due to a traumatic experience years ago involving a submammary rash that tore during the procedure. Her last colon cancer screening was a stool- based test that was negative, and her last bone density scan was also normal, after which she was advised to take calcium. Medical History: - Hypercholesterolemia - Arthritis - Psoriasis - History of Ganglion cysts - Postmenopausal Medications: - Statin medication (unspecified) for hy percholesterolemia - Betamethasone for psoriasis of the sca lp - Aleve as needed for arthritis pain - Multivitamin Family History: - Unremarkable for any conditions discus sed. Diagnostic Results: - Labs (2 weeks prior): Normal blood cou nts, electrolytes, and kidney function. - Lipid Panel (2 weeks prior): Total cho lesterol 251 mg/dL, LDL cholesterol 128 mg/dL. - Past stool-based colon cancer screenin g: Negative. - Past bone density scan: Normal. Social: - Functional Status: Patient is active, walks, and performs tasks independently. - Nutritional Intake: Reports cooking mo st meals at home, avoiding processed foods, and eating small portions of meat. - Activity: Reports experiencing aches a fter significant work. [facility], [facility] Medical History (Updated 06/08/25 @ 10:58 by Anup Flowers MD) Lower extremity edema Leg cramps Ganglion cyst Psoriasis Arthritis Osteoporosis Family History (Updated 11/10/24 @ 13:42 by Jes Bal MA) Mother No problems noted. Father No problems noted. Social History Housing: House Patient Tobacco Use Status: Never used Tobacco e-Cigarette/Vaping Use: Never Used service: No Current occupational status: retired Cognitive needs: No Hearing needs: No Vision needs: Yes (reading glasses) Questionnaire PHQ-9 Over the last 2 weeks, how often have you been bothered by any of the following problems? 1. Little interest or pleasure in doing things: not at all 2. Feeling down, depressed, or hopeless: not at all 3. Trouble falling or staying asleep, or sleeping too much: not at all 4. Feeling tired or having little energy: not at all 5. Poor appetite or overeating: not at all 6. Feeling bad about yourself - or that you are a failure or have let yourself or your family down: not at all 7. Trouble concentrating on things, such as reading the newspaper or watching television: not at all 8. Moving or speaking so slowly that other people could have noticed. Or the opposite - being so fidgety or restless that you have been moving around a lot more than usual: not at all 9. Thoughts that you would be better off or of hurting yourself in some way: not at all Total score: 0 Depression Screening Interpretation: Negative Depression Screening Done: Yes Source: Developed by Drs. Isaiah Ignacio, Jazzy Crawley, Kenn Ray and colleagues, with an educational dejah from [employer]. Thrive Questionnaire Date Thrive assessed: 11/10/24 AUDIT C Alcohol Use Questionnaire (AUDIT-C) 1. How often do you have a drink containing alcohol?: Monthly or less 2. How many drinks containing alcohol do you have on a typical day when you are drinking?: 1 or 2 3. How often do you have six or more drinks on one occasion?: Never Total Score: 1 KATALINA-7 AMB Questionnaire KATALINA-7 Date KATALINA - 7 assessed: 11/10/24 Source: Developed by Drs. Isaiah Ignacio, Jazzy Crawley, Kenn Ray and colleagues, with an educational dejah from [employer]. Review of Systems Narrative - Constitutional: Reports feeling well and energetic. - Musculoskeletal: Reports aches with significant activity and arthritis pain managed with occasional Aleve. - Lower Extremities: Reports calf discomfort, primarily at night. - Integumentary: Reports multiple small, non-painful bumps (ganglion cysts). - Breast: Denies current issues but had a past rash. All systems reviewed & are unremarkable except as reviewed in HPI and above Physical exam (Primary Care) Vital Signs: Last Vital Signs Temp 96.9 F 06/08/25 10:16 Pulse 68 06/08/25 10:16 Resp 16 06/08/25 10:16 BP 130/74 06/08/25 10:16 Pulse Ox 96 06/08/25 10:16 Oxygen Delivery Method Room Air 06/08/25 10:16 BMI result Body Mass Index 31.4 Tobacco/Smoking Status: Tobacco use Status Tobacco use date assessed 11/10/24 06/08/25 10:21 Patient Tobacco Use Status Never used Tobacco 06/08/25 10:21 e-Cigarette/Vaping Use Never Used 06/08/25 10:21 Depression Screening Interpretation: Negative Thrive Assessment: Date of Thrive Assessment Date Thrive assessed 11/10/24 06/08/25 10:21 Narrative General: +Alert and oriented, Well nourished, No acute distress. Eye: Pupils are equal, round and reactive to light, Intact accommodation, Extraocular movements are intact, Normal conjunctiva, Vision unchanged. HENT: Normocephalic, Atraumatic, Tympanic membranes are clear, Normal hearing, Oral mucosa is moist, No pharyngeal erythema, Ear canals patent. Respiratory: Lungs CTA bilaterally, No wheeze, Respirations are non-labored. Cardiovascular: Regular rate, Regular rhythm, S1 auscultated, S2 auscultated, No murmur, Good pulses equal in all extremities, Normal peripheral perfusion, No edema. Gastrointestinal: Soft, Non-tender, Non-distended, Normal bowel sounds, No organomegaly. Musculoskeletal: Normal range of motion, Normal strength, No tenderness, No swelling, No deformity, Normal gait. Integumentary: Warm, Dry, [place], Intact, Psoriasis noted on the scalp. Neurologic: Alert, Oriented, Normal sensory, Normal motor function, No focal defects, Cranial Nerves II-XII are grossly intact, Normal deep tendon reflexes. Psychiatric: Cooperative, Appropriate mood & affect, Normal judgment. Coding Level of Care Code Est Pt Level 4 (21274) Complex EM visit Add On G2211 Diagnoses Hyperlipidemia, unspecified hyperlipidemia type E78.5 Hyperlipidemia type: unspecified Arthritis M19.90 Psoriasis L40.9 Ganglion cyst M67.40 Leg cramps R25.2 Lower extremity edema R60.0 Assessment & Plan Assessment & Plan (1) Hyperlipidemia: Comment: - Recent labs show an increase in LDL to 128 mg/dL. - The plan is to encourage increased physical activity and adherence to a healthy diet, avoiding processed foods, rather than increasing the statin dosage. - Cholesterol levels will be re-evaluated at the next visit. Code(s): E78.5 - Hyperlipidemia, unspecified Category: Medical Qualifiers: Hyperlipidemia type: unspecified Qualified Code(s): E78.5 - Hyperlipidemia, unspecified (2) Arthritis: Comment: - Patient reports aches and pains managed effectively with occasional Aleve. - Reassured that this is normal. - Advised to continue staying active and to take Aleve with food. - Tylenol PRN was also mentioned as an alternative. Code(s): M19.90 - Unspecified osteoarthritis, unspecified site Category: Medical (3) Psoriasis: Comment: - Patient has a mild seasonal flare-up managed with betamethasone. - Advised to try [id number]-nmrfirc shampoos with salicylic acid. - If it worsens, a prescription for clobetasol solution can be provided. Code(s): L40.9 - Psoriasis, unspecified Category: Medical (4) Ganglion cyst: Comment: - Multiple non-painful cysts noted, which are more apparent due to age-related skin thinning. - No intervention is necessary as they are asymptomatic. Code(s): M67.40 - Ganglion, unspecified site Category: Medical (5) Leg cramps: Comment: - Patient complains of calf discomfort at night. - Assessed as likely related to an electrolyte imbalance. - Recommended rbec-way-optmkra magnesium supplementation and electrolyte-rich drinks. Code(s): R25.2 - Cramp and spasm Category: Medical (6) Lower extremity edema: Comment: - Physical exam revealed fluid buildup and swelling in the lower legs. - This was attributed to age-related venous insufficiency. - The plan includes recommending leg elevation and the use of compression stockings. Code(s): R60.0 - Localized edema Category: Medical Plan: Health Maintenance: - Osteoporosis Screening: A bone density scan has been ordered for the patient as she is postmenopausal. - Breast Cancer Screening: The patient declines mammograms due to a past traumatic experience. - Colon Cancer Screening: A past stool-based test was negative; no new screening was ordered at this visit. - Lab Monitoring: Plan to check vitamin D, cholesterol, sugars, and thyroid function at the next visit. - Lifestyle: Encouraged to maintain physical activity, eat a healthy diet, and avoid processed foods to manage cholesterol. - Follow-up: Patient to return in 5 months for her annual physical. Patient was informed and verbally consented to the use of an ambient scribe for clinic note documentation during this visit. Plan I informed the patient that she is very healthy for her age. We reviewed her recent lab work, noting the increase in her cholesterol, and agreed to focus on diet and exercise rather than adjusting her medication at this time. I addressed her concerns about calf cramps, recommending [id number] magnesium supplementation. I explained that the swelling in her legs is related to age and can be managed with leg elevation or compression stockings. For her psoriasis, I suggested OTC salicylic acid shampoos and offered a prescription for clobetasol if it worsens. We discussed that her ganglion cysts are benign and require no intervention. I ordered a bone density scan for osteoporosis screening due to her postmenopausal status. We acknowledged her decision to decline mammograms due to a past negative experience. I scheduled a follow-up appointment in 5 months for her annual physical, at which time we will perform repeat lab work. Orders: Orders XR DEXA axial skeleton Today M81.0 - Age-related osteoporosis without current pathological fracture Patient Instructions: - Continue to stay active and eat a healthy diet with fewer processed foods to help manage your cholesterol. - For aches and pains, you can use Tylenol. If you take Aleve, always be sure to take it with food. - For the rash on your scalp, you can try shampoos from the store that contain salicylic acid. If it gets worse, call the office for a prescription. - For the cramps in your calves at night, you can try taking a magnesium supplement, which you can buy over the counter. - The swelling in your lower legs can be helped by raising your legs when you are resting or by wearing compression stockings. - We have ordered a bone scan for you to check the health of your bones. - Please return to the clinic in 5 months for your yearly physical exam.
[2025-06-08 10:16] VITALS: BP 130/74; PULSE 68; RESP 16; TEMP 36.1; O2SAT 96; BMI 31.4
--- OUTSIDE RECORDS SUMMARY | 2025-06-08 12:30 | XMS_ITS | Patient Health Record ---
[facility] Address [address] [place] [address] Care Team Providers Care Industrial Engineering Technologist Name Role Phone Juno Bustamante MD Primary Care Provider Gema Bose Unavailable [phone] Allergies Allergen (clinical drug ingredient) Drug/Non Drug [...] [employer] [address] [place] [address] [id number] Amarilis Euceda Self - patient is the insured [facility] [address] [place] [address] [id number] Amarilis Euceda Self - patient is the insured Medical (General) History Medical History History ICD Code Arthritis Back,Hip,and Knee pain sinusitis Measles Mumps Chicken pox Psoriasis/eczema Surgical History Surgery Date(Month/Year) back surgery x3 hysterectomy
--- OUTSIDE RECORDS SUMMARY | 2025-06-08 12:31 | XMS_ITS | Patient Health Record ---
Author Organization [facility] Address [address] [place] [id number] Care Team Providers Care Socially Responsible Investment Adviser Name Role Phone Isaiah Simon Brinda [phone] Reason For Referral No Information Plan Of Treatment No Information
== END 2025-06-08 10:43 | disposition home or self-care (01) ==
PROVIDERS: PCP Student in an Organized Health Care Education/Training Program; Visit Provider Student in an Organized Health Care Education/Training Program
DX: E78.5 Hyperlipidemia, unspecified (principal); M19.90 Unspecified osteoarthritis, unspecified site; L40.9 Psoriasis, unspecified; M67.40 Ganglion, unspecified site; R25.2 Cramp and spasm; R60.0 Localized edema

== ENCOUNTER → 2025-06-08 10:10 | Outpatient (BNVA) | payer MEDICARE, SELFPAY | PROVIDERS: PCP Internal Medicine; Visit Provider Internal Medicine | DX: R25.2 Cramp and spasm (principal); E78.5 Hyperlipidemia, unspecified; M19.90 Unspecified osteoarthritis, unspecified site; L40.9 Psoriasis, unspecified; M67.40 Ganglion, unspecified site; R60.0 Localized edema | CPT/HCPCS: 99212 ==